=== PATIENT | female | born 1990 | race Caucasian/White ===

== ENCOUNTER 2018-02-11 20:25 | Emergency (ER) | payer BC ==
--- NOTE | 2018-02-11 22:35 | ED ---
Head Injury - HPI Summary HPI Summary: Patient complains of pending or hitting her head on the corner of the car door this morning. Patient states she has continued to have mild headache rated at 3 /10 with some lightheadedness and nausea. Denies LOC, EMS, vision change, vomiting, any other pain, injury or symptoms. Small scab on top of forehead. Patient ambulatory. Took Tylenol at 6:00 with total relief of headache. Denies medical history. - History Of Current Complaint Chief Complaint: EDHeadInjury Stated Complaint: HEAD INJURY Time Seen by Provider: 02/11/18 21:52 Hx Obtained From: Patient Mechanism Of Injury: Blunt Trauma Onset/Duration: Started Hours Ago Onset of Pain: Immediate Severity Currently: Mild Severity Initially: Mild Pain Intensity: 3 Pain Scale Used: 0-10 Numeric Location of Head Injury: Frontal Character: Throbbing Associated Signs And Symptoms: Nausea, Headache - Allergies/Home Medications Allergies/Adverse Reactions: Allergies Allergy/AdvReac Type Severity Reaction Status Date / Time No Known Allergies Allergy Verified 02/11/18 20:43 PMH/Surg Hx/FS Hx/Imm Hx Endocrine/Hematology History: Denies: Hx Anticoagulant Therapy, Hx Diabetes Cardiovascular History: Denies: Hx Cardiac Arrest, Hx Hypertension, Hx Pacemaker/ICD History: Denies: Hx Dialysis, Hx Renal Disease Sensory History: Denies: Hx Hearing Aid Neurological History: Denies: Hx CVA Psychiatric History: Denies: Hx Panic Disorder - Surgical History Surgery Procedure, Year, and Place: TONSILS. WISDOM TEETH - Immunization History Date of Tetanus Vaccine: 2015 Infectious Disease History: No Infectious Disease History: Denies: Traveled Outside the [place] in Last 30 Days - Social History Alcohol Use: Weekly Substance Use Type: Reports: None Smoking Status (MU): Never Smoked Tobacco Review of Systems Constitutional: Negative Eyes: Negative ENT: Negative Cardiovascular: Negative Respiratory: Negative Gastrointestinal: Negative Genitourinary: Negative Musculoskeletal: Negative Skin: Other Positive: Headache Psychological: Normal All Other Systems Reviewed And Are Negative: Yes Physical Exam - Summary Physical Exam Summary: Small scab at top of forehead. No oral, facial, head trauma noted. No pain with palpation of neck. Neuro exam normal. Triage Information Reviewed: Yes Vital Signs On Initial Exam: Initial Vitals Temp Pulse Resp BP Pulse Ox 98.7 F 81 16 105/79 100 02/11/18 20:30 02/11/18 20:30 02/11/18 20:30 02/11/18 20:30 02/11/18 20:30 Vital Signs Reviewed: Yes Appearance: Positive: Well-Appearing Skin: Positive: Warm Head/Face: Positive: Normal Head/Face Inspection Eyes: Positive: Normal ENT: Positive: Normal ENT inspection Neck: Positive: Supple Respiratory/Lung Sounds: Positive: Clear to Auscultation Cardiovascular: Positive: Normal Abdomen Description: Positive: Nontender Musculoskeletal: Positive: Normal Neurological: Positive: Normal Psychiatric: Positive: Normal AVPU Assessment: Alert - [place] Coma Scale Best Eye Response: 4 - Spontaneous Best Motor Response: 6 - Obeys Commands Best Verbal Response: 5 - Oriented Coma Scale Total: 15 Diagnostics - Vital Signs Vital Signs Temp Pulse Resp BP Pulse Ox 02/11/18 20:30 98.7 F 81 16 105/79 100 - Laboratory Lab Statement: Any lab studies that have been ordered have been reviewed, and results considered in the medical decision making process. Head Injury Course/Dx Course Of Treatment: Patient complains of pending or hitting her head on the corner of the car door this morning. Patient states she has continued to have mild headache rated at 3/10 with some lightheadedness and nausea. Denies LOC, EMS, vision change, vomiting, any other pain, injury or symptoms. Small scab on top of forehead. Patient ambulatory. Took Tylenol at 6:00 with total relief of headache. Denies medical history. Physical exam:Small scab at top of forehead. No oral, facial, head trauma noted. No pain with palpation of neck. Neuro exam normal. Normal neuro exam. No LOC, no vision changes or mass. Mild headache, mild nausea. Does not meet criteria for CT head. Patient advised of concerning symptoms and asked to return should they occur. Patient understands and approved of plan. - Diagnoses Provider Diagnoses: Concussion Discharge - Sign-Out/Discharge Documenting (check all that apply): Patient Departure - Discharge Plan Condition: Stable Disposition: HOME Prescriptions: Promethazine TAB* [Phenergan TAB*] 25 mg PO Q8H PRN 5 Days #15 tab PRN Reason: Nausea Patient Education Materials: Concussion (ED), Head Injury (ED), Post Concussion Syndrome (ED) [facility] - Additional Instructions: Take Tylenol or ibuprofen for headache. Take Phenergan for nausea. Return to the ED for any new or worsening symptoms. Do not engage in any contact sports for 2 weeks until cleared by primary care. - Billing Disposition and Condition Condition: STABLE Disposition: Home
[2018-02-11] MEDS ORDERED: Ondansetron ODT TAB* 4 MG ONE (22:43)
[2018-02-11] MEDS ORDERED: Ondansetron ODT TAB* 4 MG SL ONE (22:45)
[2018-02-11 22:54] VITALS: BP 96/59
== END 2018-02-11 22:53 | disposition home or self-care (01) ==
LOC: ED 20:25
DX: S06.0X0A Concussion without loss of consciousness, initial encounter (principal); W22.8XXA Striking against or struck by other objects, initial encounter; Y92.9 Unspecified place or not applicable
CPT/HCPCS: 99282; A9270-GY